=== PATIENT | female | born 1935 | race Caucasian/White ===

== ENCOUNTER 2017-05-30 10:54 | Emergency (ER) | payer MEDICARE, OTHER ==
[~2017-05-30] VITALS: Ht 154.9 cm; Wt 57.6 kg
[~2017-05-30 10:54] MED LIST: ALEN70TA47 PO; AMLO5TAB2 PO; BUDE6HFA INH; BUSP10TA95 PO; CELE-63 PO; CHOL200018 PO; FURO40TA4 PO; HYDR-2890 PO; LVT.05T PO; MELO-195 PO; NABUMETONE PO; ND-PRIM50T PO; NF-ESOM40C PO; NFNEB10T PO; PRAM0.5T9 PO; QUIN20TA27 PO; TIOT18CA2 INH; TRAM50TA2 PO; VENL75CA55 PO
--- OUTSIDE RECORDS SUMMARY | 2017-05-30 11:00 | XMS REPORT | Clinical Summary ---
Author Author [facility] Address Unknown Phone Unavailable Care Team Providers Care Steward/[facility]ward[facility] Name Role Phone PP Unavailable Allergies Active Allergy Reactions Severity Noted Date Comments Meperidine Hcl DEMEROL Current Medications Prescription Sig. Disp. Refills Start End Date Status Date ibuprofen (ADVIL) 200 MG One orally twice daily 0 0 08/18/19 Active tablet Prn for POND 13 nebivolol (BYSTOLIC) 10 take 1 Tablet (10MG) by 0 09/15/19 Active MG tablet ORAL route every day 10 potassium chloride take 1 Capsule by ORAL 0 09/15/19 Active (MICRO-K) 10 MEQ CR route every day 10 capsule esomeprazole (NEXIUM) 40 One po daily 0 0 04/24/19 Active MG capsule 07 ezetimibe-simvastatin One po daily 0 0 04/24/19 Active (VYTORIN) 10-80 MG per 07 tablet meloxicam (MOBIC) 15 MG take 1 tablet (15MG) by 0 09/15/19 Active tablet ORAL route every day 10 norethindrone-ethinyl take 1 tablet by ORAL 0 09/15/19 Active estradiol (FEMHRT 1/5) route every day 10 1-5 MG-MCG TABS Guaifenesin (MUCINEX take 1 Tablet by Oral 0 09/15/19 Active MAXIMUM STRENGTH) 1200 MG route every day 10 TB12 albuterol (PROVENTIL) inhale 3 milliliter 90 3 03/08/19 Active (2.5 MG/3ML) 0.083% (2.5MG) by nebulization 11 nebulizer solution route every day arformoterol (BROVANA) 15 One vial via nebulizer 180 5 06/08/19 Active MCG/2ML NEBU twice daily 11 venlafaxine (EFFEXOR) 75 One po at bedtime 0 0 04/24/19 Active MG tablet 07 busPIRone (BUSPAR) 5 MG One orally three times 0 0 08/18/19 Active tablet daily 13 quinapril (ACCUPRIL) 20 One orally daily 0 0 08/18/19 Active MG tablet 13 furosemide (LASIX) 20 MG take 2 tablets orally 0 0 09/15/19 Active tablet every other day, take 3 10 tablets on alternating days. pramipexole (MIRAPEX) take 1 tablet (0.25MG) 0 09/15/19 Active 0.25 MG tablet by ORAL route every day 10 at bedtime naproxen (ALEVE) 220 MG One orally twice daily as 0 0 08/18/19 Active tablet needed for pain or fever 13 tiotropium (SPIRIVA Inhale the contents of 90 2 06/04/19 Active HANDIHALER) 18 MCG one capsule daily 11 inhalation capsule amLODIPine (NORVASC) 5 MG One po daily 0 0 04/24/19 Active tablet 07 levothyroxine (SYNTHROID) One orally daily 0 0 08/18/19 Active 50 MCG tablet 13 .reconcile (MEDICATION No Sig 1 0 08/18/19 Active LIST IMPORTED) 13 Active Problems Not on file Immunizations Name Dates Previously Given Next Due Influenza IIV3 PFree 12/22/2003 Social History Tobacco Use Types Packs/Day Years Used Date Never Assessed Sex Assigned at Date Recorded Not on file Plan of Treatment Health Maintenance Due Date Last Done Comments DTaP,Tdap,and Td Vaccines 1954 (1 - Tdap) Zoster Vaccine (#1) 1997 Pneumo-Adult (1 of 2 - 2002 PCV13) Influenza Vaccine (Season 10/28/2017 12/22/2003 Ended) Results Not on filefrom Last 3 Months
--- OUTSIDE RECORDS SUMMARY | 2017-05-30 11:01 | XMS REPORT | Continuity of Care Document ---
Author Author [facility] Organization [facility] Address Unknown Phone Unavailable Allergies Active Description Code Type Severity Reaction Onset Reported/Identified Relationship to Patient Clinical Status Yes No Known Drug Allergies [id number] N/A N/A Yes meperidine [id number] Drug Allergy Moderate nausea 04/10/2014 Medications There is no data. Problems Date Dx Coded Attending Type Code Diagnosis Diagnosed By 09/13/2012 Ot 174.9 09/13/2012 Ot V58.0 04/10/2014 Ot 174.9 04/11/2014 ROSEMARIE WHEELER, WOOD Hewitt Ot 244.9 04/11/2014 ROSEMARIE WHEELER, WOOD S Ot 401.9 04/11/2014 ROSEMARIE WHEELER, WOOD S Ot 492.8 04/11/2014 ROSEMARIE WHEELER, WOOD S Ot 722.6 04/11/2014 ROSEMARIE WHEELER, WOOD S Ot 807.01 04/11/2014 ROSEMARIE WHEELER, WOOD S Ot 860.0 04/11/2014 ROSEMARIE WHEELER, WOOD S Ot 868.03 04/11/2014 ROSEMARIE WHEELER, WOOD S Ot E849.0 04/11/2014 ROSEMARIE WHEELER, WOOD S Ot E888.1 04/11/2014 ROSEMARIE WHEELER, WOOD S Ot V10.3 04/11/2014 ROSEMARIE WHEELER, WOOD S Ot V15.82 04/12/2014 ROSEMARIE WHEELER, WOOD S Ot 244.9 04/12/2014 ROSEMARIE WHEELER, WOOD S Ot 401.9 04/12/2014 ROSEMARIE WHEELER, WOOD S Ot 492.8 04/12/2014 ROSEMARIE WHEELER, WODO S Ot 722.6 04/12/2014 ROSEMARIE WHEELER, WOOD S Ot 807.01 04/12/2014 ROSEMARIE WHEELER, WOOD S Ot 860.0 04/12/2014 ROSEMARIE WHEELER, WOOD S Ot 868.03 04/12/2014 ROSEMARIE WHEELER, WOOD S Ot E849.0 04/12/2014 ROSEMARIE WHEELER, WOOD S Ot E888.1 04/12/2014 ROSEMARIE WHEELER, WOOD S Ot V10.3 04/12/2014 ROSEMARIE WHEELER, WOOD S Ot V15.82 04/13/2014 ROSEMARIE WHEELER, WOOD S Ot 244.9 04/13/2014 ROSEMARIE WHEELER, WOOD S Ot 401.9 04/13/2014 ROSEMARIE WHEELER, WOOD S Ot 492.8 04/13/2014 ROSEMARIE WHEELER, WOOD S Ot 722.6 04/13/2014 ROSEMARIE WHEELER, WOOD S Ot 807.01 04/13/2014 ROSEMARIE WHEELER, WOOD S Ot 860.0 04/13/2014 ROSEMARIE WHEELER, WOOD S Ot 868.03 04/13/2014 ROSEMARIE WHEELER, WOOD S Ot E849.0 04/13/2014 ROSEMARIE WHEELER, WOOD S Ot E888.1 04/13/2014 ROSEMARIE WHEELER, WOOD S Ot V10.3 04/13/2014 ROSEMARIE WHEELER, WOOD S Ot V15.82 04/13/2014 ROSEMARIE WHEELER, WOOD S Ot 244.9 04/13/2014 ROSEMARIE WHEELER, WOOD S Ot 401.9 04/13/2014 ROSEMARIE WHEELER, WOOD S Ot 492.8 04/13/2014 ROSEMARIE WHEELER, WOOD S Ot 722.6 04/13/2014 ROSEMARIE WHEELER, WOOD S Ot 807.01 04/13/2014 ROSEMARIE WHEELER, WOOD S Ot 860.0 04/13/2014 ROSEMARIE WHEELER, WOOD S Ot 868.03 04/13/2014 ROSEMARIE WHEELER, WOOD S Ot E849.0 04/13/2014 ROSEMARIE WHEELER, WOOD S Ot E888.1 04/13/2014 ROSEMARIE WHEELER, WOOD S Ot V10.3 04/13/2014 ROSEMARIE WHEELER, WOOD S Ot V15.82 04/14/2014 ROSEMARIE WHEELER, WOOD S Ot 244.9 04/14/2014 ROSEMARIE WHEELER, WOOD S Ot 401.9 04/14/2014 ROSEMARIE WHEELER, WOOD S Ot 492.8 04/14/2014 ROSEMARIE WHEELER, WOOD S Ot 722.6 04/14/2014 ROSEMARIE WHEELER, WOOD S Ot 807.01 04/14/2014 ROSEMARIE WHEELER, WOOD S Ot 860.0 04/14/2014 ROSEMARIE WHEELER, WOOD S Ot 868.03 04/14/2014 ROSEMARIE WHEELER, WOOD S Ot E849.0 04/14/2014 ROSEMARIE WHEELER, WOOD S Ot E888.1 04/14/2014 ROSEMARIE WHEELER, WOOD S Ot V10.3 04/14/2014 ROSEMARIE WHEELER, WOOD S Ot V15.82 04/14/2014 ROSEMARIE WHEELER, WOOD S Ot 244.9 04/14/2014 ROSEMARIE WHEELER, WOOD S Ot 401.9 04/14/2014 ROSEMARIE WHEELER, WOOD S Ot 492.8 04/14/2014 ROSEMARIE WHEELER, WOOD S Ot 722.6 04/14/2014 ROSEMARIE WHEELER, WOOD S Ot 807.01 04/14/2014 ROSEMARIE WHEELER, WOOD S Ot 860.0 04/14/2014 ROSEMARIE WHEELER, WOOD S Ot 868.03 04/14/2014 ROSEMARIE WHEELER, WOOD S Ot E849.0 04/14/2014 ROSEMARIE WHEELER, WOOD S Ot E888.1 04/14/2014 ROSEMARIE WHEELER, WOOD S Ot V10.3 04/14/2014 ROSEMARIE WHEELER, WOOD Hewitt Ot V15.82 04/14/2014 ROSEMARIE WHEELER, WOOD S Ot 244.9 04/14/2014 ROSEMARIE WHEELER, WOOD S Ot 401.9 04/14/2014 ROSEMARIE WHEELER, WOOD S Ot 492.8 04/14/2014 ROSEMARIE WHEELER, WOOD S Ot 722.6 04/14/2014 ROSEMARIE WHEELER, WOOD S Ot 807.01 04/14/2014 ROSEMARIE WHEELER, WOOD S Ot 860.0 04/14/2014 ROSEMARIE WHEELER, WOOD S Ot 868.03 04/14/2014 ROSEMARIE WHEELER, WOOD S Ot E849.0 04/14/2014 ROSEMARIE WHEELER, WOOD S Ot E888.1 04/14/2014 ROSEMARIE WHEELER, WOOD S Ot V10.3 04/14/2014 ROSEMARIE WHEELER, WOOD S Ot V15.82 04/14/2014 ROSEMARIE WHEELER, WOOD S Ot 244.9 04/14/2014 ROSEMARIE WHEELER, WOOD S Ot 401.9 04/14/2014 ROSEMARIE WHEELER, WOOD S Ot 492.8 04/14/2014 ROSEMARIE WHEELER, WOOD S Ot 722.6 04/14/2014 ROSEMARIE WHEELER, WOOD S Ot 807.01 04/14/2014 ROSEMARIE WHEELER, WOOD S Ot 860.0 04/14/2014 ROSEMARIE WHEELER, WOOD S Ot 868.03 04/14/2014 ROSEMARIE WHEELER, WOOD S Ot E849.0 04/14/2014 ROSEMARIE WHEELER, WOOD S Ot E888.1 04/14/2014 ROSEMARIE WHEELER, WOOD S Ot V10.3 04/14/2014 ROSEMARIE WHEELER, WOOD S Ot V15.82 04/14/2014 ROSEMARIE WHEELER, WOOD S Ot 244.9 04/14/2014 ROSEMARIE WHEELER, WOOD S Ot 401.9 04/14/2014 ROSEMARIE WHEELER, WOOD S Ot 492.8 04/14/2014 ROSEMARIE WHEELER, WOOD Hewitt Ot 722.6 04/14/2014 ROSEMARIE WHEELER, WOOD S Ot 807.01 04/14/2014 ROSEMARIE WHEELER, WOOD S Ot 860.0 04/14/2014 ROSEMARIE WHEELER, WOOD S Ot 868.03 04/14/2014 ROSEMARIE WHEELER, WOOD Hewitt Ot E849.0 04/14/2014 ROSEMARIE WHEELER, WOOD S Ot E888.1 04/14/2014 ROSEMARIE WHEELER, WOOD S Ot V10.3 04/14/2014 ROSEMARIE WHEELER, WOOD S Ot V15.82 04/15/2014 ROSEMARIE WHEELER, WOOD S Ot 244.9 04/15/2014 ROSEMARIE WHEELER, WOOD S Ot 401.9 04/15/2014 ROSEMARIE WHEELER, WOOD S Ot 492.8 04/15/2014 ROSEMARIE WHEELER, WOOD S Ot 722.6 04/15/2014 ROSEMARIE WHEELER, WOOD S Ot 807.01 04/15/2014 ROSEMARIE WHEELER, WOOD S Ot 860.0 04/15/2014 ROSEMARIE WHEELER, WODO S Ot 868.03 04/15/2014 ROSEMARIE WHEELER, WOOD S Ot E849.0 04/15/2014 ROSEMARIE WHEELER, WOOD S Ot E888.1 04/15/2014 ROSEMARIE WHEELER, WOOD S Ot V10.3 04/15/2014 ROSEMARIE WHEELER, WOOD S Ot V15.82 04/16/2014 ROSEMARIE WHEELER, WOOD S Ot 244.9 04/16/2014 ROSEMARIE WHEELER, WOOD S Ot 401.9 04/16/2014 ROSEMARIE WHEELER, WOOD S Ot 492.8 04/16/2014 ROSEMARIE WHEELER, WOOD S Ot 722.6 04/16/2014 ROSEMARIE WHEELER, WOOD S Ot 807.01 04/16/2014 ROSEMARIE WHEELER, WOOD S Ot 860.0 04/16/2014 ROSEMARIE WHEELER, WOOD S Ot 868.03 04/16/2014 ROSEMARIE WHEELER, WOOD S Ot E849.0 04/16/2014 ROSEMARIE WHEELER, WOOD S Ot E888.1 04/16/2014 ROSEMARIE WHEELER, WOOD S Ot V10.3 04/16/2014 ROSEMARIE WHEELER, WOOD S Ot V15.82 04/16/2014 Ot 496 04/16/2014 Ot 174.9 04/16/2014 ROSEMARIE WHEELER, WOOD S Ot 244.9 04/16/2014 ROSEMARIE WHEELER, WOOD S Ot 401.9 04/16/2014 ROSEMARIE WHEELER, WOOD S Ot 492.8 04/16/2014 ROSEMARIE WHEELER, WOOD S Ot 722.6 04/16/2014 ROSEMARIE WHEELER, WOOD S Ot 807.01 04/16/2014 ROSEMARIE WHEELER, WOOD S Ot 860.0 04/16/2014 ROSEMARIE WHEELER, WOOD S Ot 868.03 04/16/2014 ROSEMARIE WHEELER, WOOD S Ot E849.0 04/16/2014 ROSEMARIE WHEELER, WOOD S Ot E888.1 04/16/2014 ROSEMARIE WHEELER, WOOD S Ot V10.3 04/16/2014 ROSEMARIE WHEELER, WOOD S Ot V15.82 04/16/2014 ROSEMARIE WHEELER, WOOD S Ot 244.9 04/16/2014 ROSEMARIE WHEELER, WOOD S Ot 401.9 04/16/2014 ROSEMARIE WHEELER, WOOD S Ot 492.8 04/16/2014 ROSEMARIE WHEELER, WOOD S Ot 722.6 04/16/2014 ROSEMARIE WHEELER, WOOD S Ot 807.01 04/16/2014 ROSEMARIE WHEELER, WOOD S Ot 860.0 04/16/2014 ROSEMARIE WHEELER, WOOD S Ot 868.03 04/16/2014 ROSEMARIE WHEELER, WOOD S Ot E849.0 04/16/2014 ROSEMARIE WHEELER, WOOD S Ot E888.1 04/16/2014 ROSEMARIE WHEELER, WOOD S Ot V10.3 04/16/2014 ROSEMARIE WHEELER, WOOD S Ot V15.82 04/16/2014 ROSEMARIE WHEELER, WOOD S Ot 244.9 04/16/2014 ROSEMARIE WHEELER, WOOD S Ot 401.9 04/16/2014 ROSEMARIE WHEELER, WOOD S Ot 492.8 04/16/2014 ROSEMARIE WHEELER, WOOD S Ot 722.6 04/16/2014 ROSEMARIE WHEELER, WOOD S Ot 807.01 04/16/2014 ROSEMARIE WHEELER, WOOD S Ot 860.0 04/16/2014 ROSEMARIE WHEELER, WOOD S Ot 868.03 04/16/2014 ROSEMARIE WHEELER, WOOD S Ot E849.0 04/16/2014 ROSEMARIE WHEELER, WOOD S Ot E888.1 04/16/2014 ROSEMARIE WHEELER, WOOD S Ot V10.3 04/16/2014 ROSEMARIE WHEELER, WOOD S Ot V15.82 04/16/2014 ROSEMARIE WHEELER, WOOD S Ot 244.9 04/16/2014 ROSEMARIE WHEELER, WOOD S Ot 300.00 04/16/2014 ROSEMARIE WHEELER, WOOD S Ot 311 04/16/2014 ROSEMARIE WHEELER, WOOD S Ot 401.9 04/16/2014 ROSEMARIE WHEELER, WOOD S Ot 492.8 04/16/2014 ROSEMARIE WHEELER, WOOD S Ot 722.6 04/16/2014 ROSEMARIE WHEELER, WOOD S Ot 781.0 04/16/2014 ROSEMARIE WHEELER, WOOD S Ot 807.01 04/16/2014 ROSEMARIE WHEELER, WOOD S Ot 860.0 04/16/2014 ROSEMARIE WHEELER, WOOD S Ot 868.03 04/16/2014 ROSEMARIE WHEELER, WOOD S Ot E000.8 04/16/2014 ROSEMARIE WHEELER, WOOD S Ot E849.0 04/16/2014 ROSEMARIE WHEELER, WOOD S Ot E888.1 04/16/2014 ROSEMARIE WHEELER, WOOD S Ot V10.3 04/16/2014 ROSEMARIE WHEELER, WOOD S Ot V15.82 04/17/2014 Ot 496 04/17/2014 Ot 786.05 06/13/2014 ROSEMARIE WHEELER, WOOD S Ot 244.9 06/13/2014 ROSEMARIE WHEELER, WOOD S Ot 300.00 06/13/2014 ROSEMARIE WHEELER, WOOD S Ot 311 06/13/2014 ROSEMARIE WHEELER, WOOD S Ot 401.9 06/13/2014 ROSEMARIE WHEELER, WOOD S Ot 492.8 06/13/2014 ROSEMARIE WHEELER, WOOD S Ot 722.6 06/13/2014 ROSEMARIE WHEELER, WOOD S Ot 781.0 06/13/2014 ROSEMARIE WHEELER, WOOD S Ot 807.01 06/13/2014 ROSEMARIE WHEELER, WOOD S Ot 860.0 06/13/2014 ROSEMARIE WHEELER, WOOD S Ot 868.03 06/13/2014 ROSEMARIE WHEELER, WOOD S Ot E000.8 06/13/2014 ROSEMARIE WHEELER, WOOD S Ot E849.0 06/13/2014 ROSEMARIE WHEELER, WOOD S Ot E888.1 06/13/2014 ROSEMARIE WHEELER, WOOD S Ot V10.3 06/13/2014 ROSEMARIE WHEELER, WOOD S Ot V15.82 06/13/2014 ROSEMARIE WHEELER, WOOD S Ot 244.9 06/13/2014 ROSEMARIE WHEELER, WOOD S Ot 300.00 06/13/2014 ROSEMARIE WHEELER, WOOD S Ot 311 06/13/2014 ROSEMARIE WHEELER, WOOD S Ot 401.9 06/13/2014 ROSEMARIE WHEELER, WOOD S Ot 492.8 06/13/2014 ROSEMARIE WHEELER, WOOD S Ot 722.6 06/13/2014 ROSEMARIE WHEELER, WOOD S Ot 781.0 06/13/2014 ROSEMARIE WHEELER, WOOD S Ot 807.01 06/13/2014 ROSEMARIE WHEELER, WOOD S Ot 860.0 06/13/2014 ROSEMARIE WHEELER, WOOD S Ot 868.03 06/13/2014 ROSEMARIE WHEELER, WOOD S Ot E000.8 06/13/2014 ROSEMARIE WHEELER, WOOD S Ot E849.0 06/13/2014 ROSEMARIE WHEELER, WOOD S Ot E888.1 06/13/2014 ROSEMARIE WHEELER, WOOD S Ot V10.3 06/13/2014 ROSEMARIE WHEELER, WOOD Marcelina Ot V15.82 03/28/2017 P I10 Essential ( primary) hypertension 03/28/2017 S M7989 Other specified soft tissue disorders 03/28/2017 S R0602 Shortness of breath 04/13/2017 S I10 Essential ( primary) hypertension 04/13/2017 S J189 Pneumonia, unspecified organism 04/13/2017 P J441 Chronic obstructive pulmonary disease with (acute) exacerbation 04/13/2017 S R0603 Acute respiratory distress 04/14/2017 S I10 Essential ( primary) hypertension 04/14/2017 P J441 Chronic obstructive pulmonary disease with (acute) exacerbation 04/14/2017 S R05 Cough 04/14/2017 S [id number] Other intermediate teacher (current) drug therapy 04/14/2017 S Z9981 Dependence on supplemental oxygen Procedures There is no data. Results There is no data. Encounters ACCT No. Visit Date/Time Discharge Status Pt. Type Provider Facility Loc./Unit Complaint [id number] 04/10/2014 11:46:00 04/16/2014 14:50:00 DIS Inpatient ROSEMARIE WHEELER, WOOD Hewitt [facility] SURGICAL [id number] 08/10/2012 13:51:00 09/13/2012 00:01:00 DIS Outpatient [id number] 04/17/2014 15:06:00 Document Registration [id number] 10/08/2012 00:00:00 Document Registration [id number] 06/08/2011 12:17:00 Document Registration [id number] 04/15/2017 18:57:59 Document Registration [id number] 04/13/2017 23:02:55 Document Registration [id number] 04/13/2017 22:50:20 Document Registration [id number] 03/23/2017 08:55:59 Document Registration [id number] 11/29/2016 11:45:09 Document Registration [id number] 04/27/2017 15:39:12 04/27/2017 23:59:59 CLS Outpatient Torito Nolan [id number] 08/24/2015 11:20:13 08/24/2015 23:59:59 CLS Outpatient Cassius Ball
[2017-05-30] MEDS ORDERED: cloNIDine 0.1 MG (CATAPRES) TAB PO ONE (11:15)
--- NOTE | 2017-05-30 11:18 | ED Chest Pain ---
General Chief Complaint: Cardiac/General Problems Stated Complaint: HIGH BP Source: patient Exam Limitations: no limitations History of Present Illness Date Seen by Provider: May 30, 2017 Time Seen by Provider: 11:02 Initial Comments Here with report of high blood pressure that she states she knew was getting elevated this morning when she started getting a headache. States that this occasionally happens and they have been working with her blood pressure recently. Also has a little bit of wheezing going on today. She does have breathing treatments to home. Denies fever or chills. Denies chest pain. Does admit to increased swelling of her legs. Timing/Duration: 1 day Severity/Quality: mild, other (headache) Location: other (headache) Radiation: no radiation ASA po CIVIL ENGINEER HELPER: No (no chest pain) NTG SL CIVIL ENGINEER HELPER: No Associated Symptoms: No abdominal pain, No back pain, No diaphoresis, edema, No fatigue, No fever/chills, No nausea/vomiting, shortness of breath, No weakness Allergies and Home Medications Allergies Coded Allergies: meperidine (Unverified Allergy, Intermediate, nausea, 04/10/14) Home Medications Alendronate Sodium 70 Mg Tablet, 70 MG PO WEEKLY ON MONDAY, (Reported) Amlodipine Besylate 5 Mg Tablet, 5 MG PO DAILY, (Reported) Budesonide/Formoterol Fumarate 1 Inhaler Aero, 2 PUFF INH BID, (Reported) Buspirone Hcl 10 Mg Tab, 10 MG PO BID, (Reported) Celecoxib 200 Mg Capsule, 200 MG PO DAILY, (Reported) Cholecalciferol (Vitamin D3) 2,000 Unit Capsule, 2,000 UNIT PO DAILY, (Reported) Esomeprazole Mag Trihydrate 40 Mg Capsule.dr, 40 MG PO DAILY, (Reported) Furosemide 40 Mg Tablet, 40 MG PO DAILY, (Reported) Levothyroxine Sodium 50 Mcg Tablet, 50 MCG PO DAILY, (Reported) Nebivolol Hcl 10 Mg Tablet, 10 MG PO DAILY, (Reported) Pramipexole Di-Hcl 0.5 Mg Tablet, 1.5 MG PO DAILY, (Reported) TAKES 3 (0.5MG) TABLETS Primidone 50 Mg Tablet, 50 MG PO DAILY, (Reported) Quinapril Hcl 20 Mg Tablet, 20 MG PO DAILY, (Reported) Tiotropium [place] 1 Inh Aerp, 1 CAP INH DAILY, (Reported) Tramadol Hcl 50 Mg Tab, 50 MG PO Q4H PRN for PAIN, (Reported) Venlafaxine Hcl 75 Mg Cap.sr.24h, 75 MG PO DAILY, (Reported) [Nabumetone] , 500 MG PO BID, (Reported) Patient Home Medication List Home Medication List Reviewed: Yes Review of Systems Constitutional: see HPI, No chills, No fever EENTM: No Symptoms Reported Respiratory: See HPI, Shortness of Air, Wheezing Cardiovascular: Denies Chest Pain, Edema Gastrointestinal: Denies Abdominal Pain, Denies Diarrhea, Denies Nausea, Denies Vomiting Genitourinary: No Symptoms Reported (report from a) Musculoskeletal: no symptoms reported Skin: change in color (redness left lower extremity near area of injury), lesions Psychiatric/Neurological: Denies Anxiety, Headache, Denies Weakness Endocrine: No Symptoms Reported All Other Systems Reviewed Negative Unless Noted: Yes Past Pcrcdxq-[id number]-[id number] Hx Patient Social History Alcohol Use: Denies Use Recreational Drug Use: No Smoking Status: Former Smoker Recent Foreign Travel: No Contact w/Someone Who Travel: No Immunizations Up To Date Tetanus Booster (TDap): Unknown Date of Pneumonia Vaccine: Dec 08, 2013 Date of Influenza Vaccine: Dec 08, 2013 Seasonal Allergies Seasonal Allergies: No Surgeries History of Surgeries: Yes Surgeries: Orthopedic Respiratory History of Respiratory Disorde: Yes Respiratory Disorders: COPD, Emphysema Cardiovascular History of Cardiac Disorders: Yes Cardiac Disorders: High Cholesterol, Hypertension Reproductive System Hx Reproductive Disorders: No Musculoskeletal History of Musculoskeletal Dis: Yes Musculoskeletal Disorders: Degenerate Disk Disease Endocrine History of Endocrine Disorders: Yes Endocrine Disorders: Hypothyroidsim HEENT HEENT Disorders: Cataract Loss of Vision: Denies Hearing Impairment: Denies 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 Blood Transfusions Adverse Reaction to a Blood Tr: No Reviewed Nursing Assessment Reviewed/Agree w Nursing PMH: Yes Family Medical History Family Medial History: Alzheimer's disease 19 FATHER Physical Exam Vital Signs Vital Signs - First Documented 05/30/17 11:10 Temp 98.3 Pulse 95 Resp 16 B/P (MAP) 191/77 (115) Pulse Ox 98 O2 Delivery Room Air Capillary Refill : General Appearance: No Apparent Distress, WD/WN HEENT: PERRL/EOMI, Pharynx Normal Neck: Non Tender, Supple Respiratory: No Accessory Muscle Use, No Respiratory Distress, Wheezing Cardiovascular: Regular Rate, Rhythm, No Murmur Gastrointestinal: Non Tender, Soft Extremity: Normal Range of Motion, Non Tender, Pedal Edema (2+ edema bilateral lower extremities) Neurologic/Psychiatric: Alert, Oriented x3 Skin: Warm/Dry, Other (mild erythema around the small wounds to the anterior mid tibial area on the left leg.) Progress/Results/Core Measures Results/Orders Lab Results Laboratory Tests Test 05/30/17 11:30 Range/Units White Blood Count 5.5 4.3-11.0 10^3/uL Red Blood Count 4.39 4.35-5.85 10^6/uL Hemoglobin 13.1 11.5-16.0 G/DL Hematocrit 40 35-52 % Mean Corpuscular Volume 90 80-99 FL Mean Corpuscular Hemoglobin 30 25-34 PG Mean Corpuscular Hemoglobin Concent 33 32-36 G/DL Red Cell Distribution Width 14.1 10.0-14.5 % Platelet Count 220 130-400 10^3/uL Mean Platelet Volume 10.8 H 7.4-10.4 FL Neutrophils (%) (Auto) 79 H 42-75 % Lymphocytes (%) (Auto) 14 12-44 % Monocytes (%) (Auto) 6 0-12 % Eosinophils (%) (Auto) 1 0-10 % Basophils (%) (Auto) 1 0-10 % Neutrophils # (Auto) 4.3 1.8-7.8 X 10^3 Lymphocytes # (Auto) 0.8 L 1.0-4.0 X 10^3 Monocytes # (Auto) 0.3 0.0-1.0 X 10^3 Eosinophils # (Auto) 0.1 0.0-0.3 10^3/uL Basophils # (Auto) 0.0 0.0-0.1 10^3/uL Sodium Level 140 135-145 MMOL/L Potassium Level 3.9 3.6-5.0 MMOL/L Chloride Level 101 98-107 MMOL/L Carbon Dioxide Level 27 21-32 MMOL/L Anion Gap 12 5-14 MMOL/L Blood Urea Nitrogen 19 H 7-18 MG/DL Creatinine 0.68 0.60-1.30 MG/DL Estimat Glomerular Filtration Rate > 60 BUN/Creatinine Ratio 28 Glucose Level 98 70-105 MG/DL Calcium Level 9.4 8.5-10.1 MG/DL Magnesium Level 2.1 1.8-2.4 MG/DL Total Bilirubin 0.3 0.1-1.0 MG/DL Aspartate Amino Transf (AST/SGOT) 15 5-34 U/L Alanine Aminotransferase (ALT/SGPT) 19 0-55 U/L Alkaline Phosphatase 81 40-136 U/L Troponin I < 0.30 <0.30 NG/ML B-Type Natriuretic Peptide 276.6 H <100.0 PG/ML Total Protein 6.7 6.4-8.2 GM/DL Albumin 4.0 3.2-4.5 GM/DL My Orders Orders - GIBSON PEDERSEN MD Saline Lock/Iv-Start (05/30/17 11:11) Ekg Tracing (05/30/17 11:11) Monitor-Rhythm Ecg Trace Only (05/30/17 11:11) BNP (05/30/17 11:11) Cbc With Automated Diff (05/30/17 11:11) Comprehensive Metabolic Panel (05/30/17 11:11) Magnesium (05/30/17 11:11) Troponin I (05/30/17 11:11) Chest 1 View, Ap/Pa Only (05/30/17 11:11) Clonidine Tablet (Catapres Tablet) (05/30/17 11:15) Albuterol/Ipra Inhalation Soln (Duoneb I (05/30/17 11:30) Svn Sm Volume Nebulizer Rt-Rfs (05/30/17 11:20) Medications Given in ED Current Medications Medications Dose Ordered Sig/Chelo Route Start Time Stop Time Status Last Admin Dose Admin Albuterol/ Ipratropium 3 ml ONCE ONCE INH 05/30/17 11:30 05/30/17 11:31 DC 05/30/17 12:11 3 ML Clonidine HCl 0.1 mg ONCE ONCE PO 05/30/17 11:15 05/30/17 11:16 DC 05/30/17 12:18 0.1 MG Vital Signs/I&O Vital Sign - Last 12Hours 05/30/17 05/30/17 11:10 12:13 Temp 98.3 Pulse 95 Resp 16 B/P (MAP) 191/77 (115) Pulse Ox 98 96 O2 Delivery Room Air Room Air Progress Note : Progress Note Seen and evaluated. IV, labs, EKG, chest x-ray and DuoNeb albuterol ordered. Clonidine 0.1 mg by mouth. Monitor patient. 1250: Patient states headache is resolved and she feels much better. She likely go home. Labs and chest x-ray reviewed as well as EKG. No significant findings currently. I will have her add additional dose of Lasix today and potentially tomorrow and will right small prescription for clonidine in case she has breakthrough hypertension. Discharged home with return precautions. Patient and family verbalize understanding instructions and agreement with plan. ECG Initial ECG Impression Date: May 30, 2017 Initial ECG Impression Time: 11:31 Initial ECG Rate: 80 Initial ECG Rhythm: Normal Sinus Comment Sinus rhythm with normal axis. No evidence of ST elevation WI. Change from previous that was tachycardia with a regular rate on 04/12/14. Interpreted by me. Diagnostic Imaging Diagonstic Imaging: Xray Plain Films/CT/US/NM/MRI: chest Comments VIA [facility], [facility]. [place], [place] NAME: TORRES LANG [facility] REC#: [id number] PT STATUS: REG ER : 1935 PHYSICIAN: GIBSON PEDERSEN MD ADMIT DATE: 05/30/17/ER Draft Date of Exam:05/30/17 CHEST 1 VIEW, AP/PA ONLY INDICATION: Hypertension. Intermittent dizziness and headache COMPARISON: 04/17/2014 FINDINGS: Single frontal radiographic view of the chest was obtained and demonstrates mild cardio megaly. Pulmonary vascular structures within normal limits. There is calcified aortic atherosclerosis. Hiatal hernia is noted. Lungs are clear and show no focal consolidation, large effusion, nor pneumothorax. Bony structures show no gross acute abnormalities. IMPRESSION: 1. Cardiomegaly, but no evidence of overt failure. 2. Large hiatal hernia. Dictated on workstation # [id number] Dict: 05/30/17 1155 Trans: 05/30/17 1203 [facility] [id number] Interpreted by: SOFIYA GALAVIZ MD Electronically signed by: Departure Impression Impression: Primary Impression: Hypertension, uncontrolled Additional Impression: Lower extremity edema Disposition: 01 HOME, SELF-CARE Condition: Improved Departure-Patient Inst. Decision time for Depature: 12:52 Referrals: JOSE A TEMPLE (PCP) Primary Care Physician BORTMES,ATA E DO (Family) Primary Care Physician Patient Instructions: Dependent Edema (DC), High Blood Pressure (DC) Add. Discharge Instructions: All discharge instructions reviewed with patient and/or family. Voiced understanding. You may take additional dose of your Lasix tonight and tomorrow night as needed for your leg swelling. Take other medications as directed. Follow-up with your Dr. in a few days for recheck. Return for worse pain, fever, vomiting, weakness, breathing problems or other concerns as needed. Scripts Clonidine HCl (Clonidine HCl) 0.1 Mg Tablet 0.1 MG PO BID Y for BLOOD PRESSURE, #12 TAB 0 Refills Prov: GIBSON PEDERSEN MD 05/30/17 GIBSON PEDERSEN MD May 30, 2017 11:18
[2017-05-30] MEDS ORDERED: RT-ALBUTEROL/IPRATROPIUM 3 ML (DUONEB) VIAL INH ONE (11:30)
[2017-05-30 11:44] LABS: BASOPHILS % (AUTO) 1 % (0-10); EOSINOPHILS # (AUTO) 0.1 10^3/uL (0.0-0.3); EOSINOPHILS % (AUTO) 1 % (0-10); HEMATOCRIT 40 % (35-52); HEMOGLOBIN 13.1 G/DL (11.5-16.0); LYMPHOCYTES # (AUTO) 0.8 X 10^3 (1.0-4.0); LYMPHOCYTES % (AUTO) 14 % (12-44); MEAN CORPUSCULAR HEMOGLOBIN 30 PG (25-34); MEAN CORPUSCULAR HGB CONC 33 G/DL (32-36); MEAN CORPUSCULAR VOLUME 90 FL (80-99); MEAN PLATELET VOLUME 10.8 FL (7.4-10.4); MONOCYTES # (AUTO) 0.3 X 10^3 (0.0-1.0); MONOCYTES % (AUTO) 6 % (0-12); NEUTROPHILS # (AUTO) 4.3 X 10^3 (1.8-7.8); NEUTROPHILS % (AUTO) 79 % (42-75); PLATELET COUNT 220 10^3/uL (130-400); RED BLOOD COUNT 4.39 10^6/uL (4.35-5.85); RED CELL DISTRIBUTION WIDTH 14.1 % (10.0-14.5); WHITE BLOOD COUNT 5.5 10^3/uL (4.3-11.0)
--- NOTE | 2017-05-30 12:04 | Diagnostic Imaging Report ---
INDICATION: Hypertension. Intermittent dizziness and headache COMPARISON: 04/17/2014 FINDINGS: Single frontal radiographic view of the chest was obtained and demonstrates mild cardio megaly. Pulmonary vascular structures within normal limits. There is calcified aortic atherosclerosis. Hiatal hernia is noted. Lungs are clear and show no focal consolidation, large effusion, nor pneumothorax. Bony structures show no gross acute abnormalities. IMPRESSION: 1. Cardiomegaly, but no evidence of overt failure. 2. Large hiatal hernia. Dictated by: Dictated on workstation # [id number]
[2017-05-30 12:06] LABS: ALANINE AMINOTRANSFERASE 19 U/L (0-55); ALKALINE PHOSPHATASE 81 U/L (40-136); BILIRUBIN,TOTAL 0.3 MG/DL (0.1-1.0); BUN/CREATININE RATIO 28; CALCIUM 9.4 MG/DL (8.5-10.1); CARBON DIOXIDE 27 MMOL/L (21-32); CHLORIDE 101 MMOL/L (98-107); CREATININE SERUM 0.68 MG/DL (0.60-1.30); GFR ESTIMATED > 60; GLUCOSE 98 MG/DL (70-105); MAGNESIUM 2.1 MG/DL (1.8-2.4); POTASSIUM 3.9 MMOL/L (3.6-5.0); SODIUM 140 MMOL/L (135-145); TOTAL PROTEIN 6.7 GM/DL (6.4-8.2)
[2017-05-30] MEDS ORDERED: CLON0.1T PO (12:54)
[2017-05-30 13:22] VITALS: BP 152/88
== END 2017-05-30 13:22 | disposition home or self-care (01) ==
LOC: EDUNIT# 10:54 → ER 10:58
DX: I10 Essential (primary) hypertension (principal); R60.0 Localized edema; E03.9 Hypothyroidism, unspecified; J43.9 Emphysema, unspecified; E78.00 Pure hypercholesterolemia, unspecified; Z88.5 Allergy status to narcotic agent; Z87.891 Personal history of nicotine dependence; Z85.3 Personal history of malignant neoplasm of breast
CPT/HCPCS: 36415; 71045; 80053; 83735; 83880; 84484; 85025; 93005; 93041; 94640

== ENCOUNTER → 2018-08-06 | Outpatient (CLI) | payer MEDICARE, OTHER ==
[~2018-08-06] MED LIST changes: +CLON0.1T PO
[2018-08-06 12:13] LABS: BUN/CREATININE RATIO 31; CREATININE SERUM 0.67 MG/DL (0.60-1.30); GFR ESTIMATED > 60
[2018-08-06 12:20] LABS: ABG BASE EXCESS 0.6 MMOL/L (-2.5-2.5); ABG OXYGEN SATURATION 94 % (94-100); ABG PCO2 48 MMHG (35-45); ABG PH 7.35 (7.37-7.43); ABG PO2 64 MMHG (79-93); ABG TCO2 27.4 MMOL/L (21.0-31.0)
[2018-08-06 12:21] LABS: ALLENS TEST YES-POS; INSPIRED O2 ROOM AIR; PATIENT TEMP 96.2; VENTILATOR NO
--- NOTE | 2018-08-06 13:17 | Diagnostic Imaging Report ---
PROCEDURE: US Venous Lower Ext Parvez. TECHNIQUE: Multiple real-time grayscale images were obtained over the lower extremities in various projections, bilaterally. Additional duplex Doppler and color Doppler images were also obtained. INDICATION: Dyspnea, pain. COMPARISON: None available. FINDINGS: Normal flow, compression, and augmentation within the visualized deep venous structures of the bilateral lower extremities. IMPRESSION: No evidence of deep venous thrombosis within bilateral lower extremities. Dictated by: Dictated on workstation # [id number]
--- NOTE | 2018-08-06 14:20 | Diagnostic Imaging Report ---
PROCEDURE: CT chest with contrast only. TECHNIQUE: Multiple contiguous axial images were obtained through the chest after administration of intravenous contrast. Auto Exposure Controls were utilized during the CT exam to meet ALARA standards for radiation dose reduction. DATE: August 06, 2018. COMPARISON: Chest radiograph of May 30, 2017. INDICATION: 83-year-old female, dyspnea and cough. History of chronic obstructive pulmonary disease. FINDINGS: There is no identified pulmonary nodule or lung mass. There are very mild linear opacities in the left upper lobe, compatible with atelectasis and/or scarring. There is no additional focal airspace consolidation. There is no pneumothorax. There is no pleural effusion. The central airways are patent. There is no identified central pulmonary embolus. The main pulmonary artery is normal in caliber. There are coronary artery calcifications and additional areas of atherosclerotic disease. The heart is not grossly enlarged. There is no pericardial effusion. There is no identified abnormally enlarged mediastinal, hilar, or axillary lymph node which meets CT size criteria for adenopathy. There is a very large hiatal hernia. There is a low-attenuation right renal lesion on axial image 51 which measures 13 mm in size with internal attenuation measuring 62 Hounsfield units. This is indeterminate. There is a low-attenuation right renal lesion, compatible with a benign cyst, on axial image 46 measuring 1.5 cm in size. Additional limited evaluation of the imaged portions of the upper abdomen is unremarkable. There are multilevel degenerative changes of the spine. There is hardware at the level of the left proximal humerus. There are severe right glenohumeral arthritic changes. There is a superior endplate concavity of T12 with minimal vertebral body height loss. There is no retropulsed fracture fragment. This is new since March 2014. This is a new but technically indeterminate age compression fracture. IMPRESSION: CT CHEST. 1. Compression fracture of the superior endplate of T12 with minimal vertebral body height loss and no retropulsed fracture fragment which is new since March 2014 although of otherwise uncertain exact age. 2. Very large hiatal hernia. 3. No identified acute cardiopulmonary abnormality. 4. Indeterminate right renal lesion measuring 1.3 cm in size. Recommend dedicated CT abdomen with and without contrast using renal mass protocol for further assessment. Dictated by: Dictated on workstation # [id number]
== END ==
LOC: RAD 11:15
PROVIDERS: ATTEND Nurse Practitioner Family
DX: J44.9 Chronic obstructive pulmonary disease, unspecified (principal); S22.080A Wedge compression fracture of T11-T12 vertebra, initial encounter for closed fracture; K44.9 Diaphragmatic hernia without obstruction or gangrene; N28.9 Disorder of kidney and ureter, unspecified; J30.9 Allergic rhinitis, unspecified; I87.2 Venous insufficiency (chronic) (peripheral)
CPT/HCPCS: 36415; 71260; 82565; 82805; 84520; 93970